=== PATIENT | female | born 2000 | race Caucasian/White ===

== ENCOUNTER 2020-07-21 15:35 | Emergency (ER) | payer MEDICAID ==
[~2020-07-21] VITALS: Ht 170.2 cm; Wt 105.0 kg
[2020-07-21] MEDS ORDERED: IBUPROFEN 600MG TABLET PO ONE (19:15)
[2020-07-21 19:39] VITALS: BP 132/67
== END 2020-07-21 19:41 | disposition home or self-care (01) ==
LOC: ER 15:35
DX: R51.9 Headache, unspecified (principal)
CPT/HCPCS: 99281